=== PATIENT | male | born 1975 | race African-American/Black ===

== ENCOUNTER 2025-03-19 09:28 | Emergency (ER) | payer OTHER ==
[~2025-03-19] VITALS: Ht 180.3 cm; Wt 79.0 kg
[2025-03-19 09:45] VITALS: O2SAT 100
[2025-03-19 10:02] LABS: BASOPHILS % 0.4 % (0.0-2.0); EOSINOPHILS % 0.2 % (0.0-5.0); HEMATOCRIT. 42.9 % (42.0-52.0); HEMOGLOBIN. 13.9 g/dL (14.0-18.0); LYMPHOCYTES % 21.3 % (20.0-50.0); MEAN PLATELET VOLUME 7.3 fl (7.4-10.4); MONOCYTES % 7.2 % (2.0-8.0); NEUTROPHILS % 70.9 % (40.0-76.0); PLATELET 234 x1000/uL (130-400); RED BLOOD CELL COUNT 5.26 mill/uL (4.7-6.1); RED CELL DISTRIBUTION WIDTH 14.8 % (11.6-14.6)
[2025-03-19 10:21] LABS: CREATININE 1.1 mg/dL (0.6-1.3); UREA NITROGEN BLOOD 12 mg/dL (9-23)
[2025-03-19 10:24] LABS: CLARITY URINE TURBID (CLEAR); COLOR URINE ORANGE (YELLOW); GLUCOSE URINE NEGATIVE (NEGATIVE); KETONES URINE 1+ (NEGATIVE); LEUKOCYTE ESTERASE URINE 3+ (NEGATIVE); NITRITE URINE NEGATIVE (NEGATIVE); OCCULT BLOOD URINE 3+ (NEGATIVE); PH URINE 6.5 (4.5-8.0); PROTEIN URINE 3+ (NEGATIVE); SPECIFIC GRAVITY URINE 1.025 (1.005-1.030); UROBILINOGEN URINE 1.0 E.U./dL (0.2-1.0)
[2025-03-19] MEDS: KETOROLAC 30MG/ML VIAL IM ONE (10:30)
[2025-03-19 10:50] LABS: BACTERIA URINE 1+; RBC URINE 50-100 /hpf (0-2); SQUAMOUS EPITHELIAL CELL URINE NONE SEEN /lpf (RARE/1+); WBC URINE TNTC /hpf (0-2); YEAST URINE NONE SEEN
[2025-03-19] MEDS ORDERED: CEFP200T13 MT (12:08)
[2025-03-19 12:34] LABS: ASPARTATE AMINOTRANSFERASE 17 IU/L (<34); BILIRUBIN DIRECT 0.3 mg/dL (<=3.0); BILIRUBIN TOTAL 1.1 mg/dL (0.1-1.0); PROTEIN TOTAL 7.5 g/dL (6.0-8.3)
[2025-03-19 12:52] VITALS: BP 142/83; PULSE 73; RESP 12; TEMP 36.9; O2SAT 99
== END 2025-03-19 12:53 | disposition home or self-care (01) ==
LOC: ER 09:28
DX: N39.0 Urinary tract infection, site not specified (principal); I86.1 Scrotal varices; R10.31 Right lower quadrant pain
CPT/HCPCS: 99285; 74176; 93976; 80076; 80048; 81003; 83690; 85025; 87086; 87077; 36415; 76870; 96372; J1885